=== PATIENT | male | born 1950 | race Caucasian/White ===

== ENCOUNTER → 2021-03-10 | Outpatient (CLI) | payer MEDICARE | LOC: NM 07:57 | DX: R93.89 Abnormal findings on diagnostic imaging of other specified body structures (principal) | CPT/HCPCS: 78226; A9537 ==

== ENCOUNTER → 2021-04-15 | Outpatient (CLI) | payer MEDICARE | LOC: ECHO 11:20 | DX: I25.10 Atherosclerotic heart disease of native coronary artery without angina pectoris (principal); I08.3 Combined rheumatic disorders of mitral, aortic and tricuspid valves; I27.20 Pulmonary hypertension, unspecified | CPT/HCPCS: ECHO; 93306 ==

== ENCOUNTER 2022-07-12 12:21 | Emergency (ER) | payer MEDICARE ==
[2022-07-12 14:49] LABS: HEMOGLOBIN 12.3 gm/dl (14.0-17.5); RED BLOOD COUNT 4.17 M/UL (4.20-5.50); WHITE BLOOD COUNT 4.9 K/UL (4.5-11.0)
[2022-07-12 15:27] LABS: BUN/CREATININE RATIO 13 (0-10)
[2022-07-12] MEDS ORDERED: ZOFRAN 4 MG TAB4 MG PO (22:32)
== END 2022-07-12 17:30 | disposition home or self-care (01) ==
LOC: ER1 12:21
PROVIDERS: Emergency Medicine
DX: U07.1 COVID-19 (principal); E11.9 Type 2 diabetes mellitus without complications; I10 Essential (primary) hypertension; I25.10 Atherosclerotic heart disease of native coronary artery without angina pectoris; Z95.1 Presence of aortocoronary bypass graft; Z90.49 Acquired absence of other specified parts of digestive tract; Z88.8 Allergy status to other drugs, medicaments and biological substances
CPT/HCPCS: 0240U; 71045; 80053; 82962; 85025; 96374; 99283

== ENCOUNTER 2022-07-12 21:28 | Emergency (ER) | payer MEDICARE ==
[2022-07-12 21:44] LABS: RED BLOOD COUNT 4.08 M/UL (4.20-5.50); WHITE BLOOD COUNT 6.1 K/UL (4.5-11.0)
[2022-07-12 22:06] LABS: BUN/CREATININE RATIO 15 (0-10)
[2022-07-12] MEDS ORDERED: ZOFRAN 4 MG TAB4 MG PO (22:32)
== END 2022-07-12 23:20 | disposition home or self-care (01) ==
LOC: ER1 21:28
PROVIDERS: Emergency Medicine
DX: U07.1 COVID-19 (principal); Z95.1 Presence of aortocoronary bypass graft; Z95.5 Presence of coronary angioplasty implant and graft
CPT/HCPCS: 80053; 84484; 85025; 93005; 96374; 99284; J2405